=== PATIENT | male | born 1955 | race Caucasian/White ===

== ENCOUNTER → 2023-09-22 13:16 | Outpatient (REF) | payer MEDICARE, OTHER, SELFPAY ==
[2023-09-22 14:14] LABS: % Basophils 0.7 % (0-2); % Immature Granulocytes 0.5 % (0-0.5); % Lymphocytes 20.3 % (20.5-51.1); % Monocytes 11.4 % (1.7-9.3); % Neutrophils 64.1 % (42.2-75.2); Absolute Eosinophils 0.2 10^3/uL (0-0.7); Absolute Lymphocytes 1.2 10^3/uL (1.2-3.4); Absolute Monocytes 0.7 10^3/uL (0.1-0.6); Absolute Neutrophils 3.7 10^3/uL (1.4-6.5); Hematocrit 40.5 % (39.0-52.0); Hemoglobin 14.8 g/dL (13.0-18.0); Mean Corp Hgb Conc. 36.5 g/dL (33.0-37.0); Mean Corpuscular Hgb 33.9 pg (27.0-31.0); Mean Corpuscular Volume 92.9 fL (80.0-94.0); Mean Platelet Volume 8.7 fL (7.4-10.4); Nucleated Red Blood Cells % 0 % (-); Platelet Count 194 10^3/uL (130-400); Red Blood Cell Count 4.36 10^6/uL (4.70-6.10); White Blood Cell Count 5.7 10^3/uL (4.8-10.8)
[2023-09-22 14:40] LABS: Iron 187 ug/dl (49-181)
[2023-09-22 14:50] LABS: Percent Saturation 64 % (20-50); Total Iron Binding Capacity 288 ug/dl (261-462)
[2023-09-22 15:22] LABS: Ferritin 60.4 ng/ml (17.9-464.0)
== END ==
LOC: REG 13:16
PROVIDERS: ATTENDING PHYSICIAN Internal Medicine Hematology & Oncology; FAMILY PHYSICIAN Family Medicine
DX: C24.9 Malignant neoplasm of biliary tract, unspecified (principal); E83.119 Hemochromatosis, unspecified
CPT/HCPCS: 36415; 82728; 83540; 83550; 85025

== ENCOUNTER 2023-09-28 13:33 | Outpatient (RCR) | payer MEDICARE, OTHER, SELFPAY ==
[2023-09-28 13:54] VITALS: BP 131/72
[2023-09-28 14:15] VITALS: BP 127/83
== END 2023-09-29 08:06 | disposition home or self-care (01) ==
LOC: OID 13:33
PROVIDERS: ATTENDING PHYSICIAN Internal Medicine Hematology & Oncology; FAMILY PHYSICIAN Family Medicine
DX: E83.110 Hereditary hemochromatosis (principal); C24.9 Malignant neoplasm of biliary tract, unspecified
CPT/HCPCS: 99195

== ENCOUNTER → 2023-12-18 11:02 | Outpatient (REF) | payer MEDICARE, OTHER, SELFPAY ==
[2023-12-18 12:09] LABS: % Basophils 0.3 % (0-2); % Eosinophils 1.3 % (0-6); % Immature Granulocytes 0.4 % (0-0.5); % Lymphocytes 7.5 % (20.5-51.1); % Monocytes 8.6 % (1.7-9.3); % Neutrophils 81.9 % (42.2-75.2); Absolute Eosinophils 0.1 10^3/uL (0-0.7); Absolute Lymphocytes 0.8 10^3/uL (1.2-3.4); Absolute Monocytes 0.9 10^3/uL (0.1-0.6); Absolute Neutrophils 8.7 10^3/uL (1.4-6.5); Hematocrit 41.9 % (39.0-52.0); Hemoglobin 15.4 g/dL (13.0-18.0); Mean Corp Hgb Conc. 36.8 g/dL (33.0-37.0); Mean Corpuscular Hgb 34.1 pg (27.0-31.0); Mean Corpuscular Volume 92.9 fL (80.0-94.0); Mean Platelet Volume 8.7 fL (7.4-10.4); Nucleated Red Blood Cells % 0 % (-); Platelet Count 186 10^3/uL (130-400); Red Blood Cell Count 4.51 10^6/uL (4.70-6.10); Red Cell Dist. Width 11.3 % (11.5-14.5); White Blood Cell Count 10.6 10^3/uL (4.8-10.8)
[2023-12-18 12:40] LABS: Iron 94 ug/dl (49-181)
[2023-12-18 12:49] LABS: Percent Saturation 31 % (20-50); Total Iron Binding Capacity 297 ug/dl (261-462)
== END ==
LOC: REG 11:02
PROVIDERS: ATTENDING PHYSICIAN Internal Medicine Hematology & Oncology; FAMILY PHYSICIAN Family Medicine
DX: C24.9 Malignant neoplasm of biliary tract, unspecified (principal); E83.119 Hemochromatosis, unspecified
CPT/HCPCS: 36415; 82728; 83540; 83550; 85025

== ENCOUNTER 2024-01-04 13:31 | Outpatient (RCR) | payer MEDICARE, OTHER, SELFPAY ==
[2024-01-04 14:15] VITALS: BP 146/69
[2024-01-04 14:35] VITALS: BP 141/77
[2024-01-04 14:37] VITALS: BP 142/83
== END 2024-01-05 09:16 | disposition home or self-care (01) ==
LOC: OID 13:31
PROVIDERS: ATTENDING PHYSICIAN Internal Medicine Hematology & Oncology; FAMILY PHYSICIAN Family Medicine
DX: E83.119 Hemochromatosis, unspecified (principal); C24.9 Malignant neoplasm of biliary tract, unspecified; K74.60 Unspecified cirrhosis of liver
CPT/HCPCS: 99195

== ENCOUNTER → 2024-03-15 06:56 | Outpatient (REF) | payer MEDICARE, OTHER, SELFPAY ==
[2024-03-15 08:13] LABS: % Basophils 0.9 % (0-2); % Immature Granulocytes 0.6 % (0-0.5); % Lymphocytes 25.1 % (20.5-51.1); % Monocytes 10.2 % (1.7-9.3); % Neutrophils 60.2 % (42.2-75.2); Absolute Eosinophils 0.1 10^3/uL (0-0.7); Absolute Lymphocytes 1.2 10^3/uL (1.2-3.4); Absolute Monocytes 0.5 10^3/uL (0.1-0.6); Absolute Neutrophils 2.8 10^3/uL (1.4-6.5); Hematocrit 39.1 % (39.0-52.0); Hemoglobin 14.3 g/dL (13.0-18.0); Mean Corp Hgb Conc. 36.6 g/dL (33.0-37.0); Mean Corpuscular Hgb 33.6 pg (27.0-31.0); Mean Platelet Volume 8.9 fL (7.4-10.4); Nucleated Red Blood Cells % 0 % (-); Platelet Count 189 10^3/uL (130-400); Red Blood Cell Count 4.25 10^6/uL (4.70-6.10); Red Cell Dist. Width 12.8 % (11.5-14.5); White Blood Cell Count 4.6 10^3/uL (4.8-10.8)
[2024-03-15 08:58] LABS: ALT (SGPT) 34 U/L (0-50); AST (SGOT) 49 U/L (17-59); Albumin 4.6 g/dl (3.5-5.0); Alkaline Phosphatase 62 U/L (38-126); Blood Urea Nitrogen 11 mg/dl (9-20); Calcium 9.4 mg/dl (8.4-10.2); Carbon Dioxide 30 mmol/L (22-30); Chloride 96 mmol/L (98-107); Glucose 102 mg/dl (70-99); HDL Cholesterol 76 mg/dl; Iron 123 ug/dl (49-181); LDL Cholesterol, Calculated 58 mg/dl; Potassium 4.5 mmol/L (3.5-5.1); Sodium 134 mmol/L (135-145); Total Bilirubin 0.9 mg/dl (0.2-1.3); Total Cholesterol 157 mg/dl (50-199); Total Protein 7.1 g/dl (6.3-8.2); Triglyceride 115 mg/dl (10-149); Very Low Density Lipoprotein 23 mg/dl (0-30); eGFR > 60.00
[2024-03-15 09:08] LABS: Percent Saturation 42 % (20-50); Total Iron Binding Capacity 289 ug/dl (261-462)
[2024-03-15 09:09] LABS: Free T4 0.72 ng/dl (0.78-2.19)
[2024-03-15 09:23] LABS: PSA, Total - Screen 0.83 ng/ml (0.0-4.0); TSH 3.31 uIU/ml (0.47-4.68)
[2024-03-15 09:27] LABS: Ferritin 35.7 ng/ml (17.9-464.0)
== END ==
LOC: REG 06:56
PROVIDERS: ATTENDING PHYSICIAN Internal Medicine Hematology & Oncology; FAMILY PHYSICIAN Family Medicine
DX: C24.9 Malignant neoplasm of biliary tract, unspecified (principal); E83.119 Hemochromatosis, unspecified; E78.2 Mixed hyperlipidemia; R53.83 Other fatigue; Z12.5 Encounter for screening for malignant neoplasm of prostate; Z00.01 Encounter for general adult medical examination with abnormal findings; R25.2 Cramp and spasm
CPT/HCPCS: 36415; 80053; 80061; 82728; 83540; 83550; 83735; 84439; 84443; 85025; G0103

== ENCOUNTER 2024-04-07 10:40 | Outpatient (RCR) | payer MEDICARE, OTHER, SELFPAY ==
[2024-04-07 10:57] VITALS: BP 145/83
[2024-04-07 11:25] VITALS: BP 134/89
[2024-04-07 11:26] VITALS: BP 137/89
== END 2024-04-18 23:59 | disposition home or self-care (01) ==
LOC: OID 10:40
PROVIDERS: ATTENDING PHYSICIAN Internal Medicine Hematology & Oncology; FAMILY PHYSICIAN Family Medicine
DX: E83.119 Hemochromatosis, unspecified (principal); C24.9 Malignant neoplasm of biliary tract, unspecified
CPT/HCPCS: 99195

== ENCOUNTER → 2024-04-21 07:17 | Outpatient (REF) | payer MEDICARE, OTHER, SELFPAY | LOC: MRI 3T 07:17 | PROVIDERS: ATTENDING PHYSICIAN Physician Assistant; FAMILY PHYSICIAN Family Medicine | DX: M54.16 Radiculopathy, lumbar region (principal) | CPT/HCPCS: 72148 ==

== ENCOUNTER → 2024-06-09 10:03 | Outpatient (REF) | payer MEDICARE, OTHER, SELFPAY | LOC: RCS 10:03 | PROVIDERS: ATTENDING PHYSICIAN Physical Medicine & Rehabilitation; FAMILY PHYSICIAN Family Medicine | DX: Z01.818 Encounter for other preprocedural examination (principal) | CPT/HCPCS: 93005 ==

== ENCOUNTER → 2024-06-21 14:33 | Outpatient (REF) | payer MEDICARE, OTHER, SELFPAY ==
[2024-06-21 15:04] LABS: % Basophils 0.7 % (0-2); % Immature Granulocytes 0.9 % (0-0.5); % Lymphocytes 21.7 % (20.5-51.1); % Monocytes 14.3 % (1.7-9.3); % Neutrophils 60.4 % (42.2-75.2); Absolute Eosinophils 0.1 10^3/uL (0-0.7); Absolute Immature Granulocytes 0.1 10^3/uL (0-0.05); Absolute Lymphocytes 1.2 10^3/uL (1.2-3.4); Absolute Monocytes 0.8 10^3/uL (0.1-0.6); Absolute Neutrophils 3.4 10^3/uL (1.4-6.5); Hematocrit 42.1 % (39.0-52.0); Mean Corp Hgb Conc. 35.6 g/dL (33.0-37.0); Mean Corpuscular Hgb 34.1 pg (27.0-31.0); Mean Corpuscular Volume 95.7 fL (80.0-94.0); Mean Platelet Volume 8.6 fL (7.4-10.4); Nucleated Red Blood Cells % 0 % (-); Platelet Count 233 10^3/uL (130-400); Red Cell Dist. Width 12.1 % (11.5-14.5); White Blood Cell Count 5.6 10^3/uL (4.8-10.8)
[2024-06-21 15:20] LABS: Iron 165 ug/dl (49-181)
[2024-06-21 15:30] LABS: Percent Saturation 51 % (20-50); Total Iron Binding Capacity 322 ug/dl (261-462)
[2024-06-21 15:56] LABS: Ferritin 34.9 ng/ml (17.9-464.0)
== END ==
LOC: REG 14:33
PROVIDERS: ATTENDING PHYSICIAN Internal Medicine Hematology & Oncology; FAMILY PHYSICIAN Family Medicine
DX: C24.9 Malignant neoplasm of biliary tract, unspecified (principal); E83.119 Hemochromatosis, unspecified
CPT/HCPCS: 36415; 82728; 83540; 83550; 85025

== ENCOUNTER 2024-06-28 14:31 | Outpatient (RCR) | payer MEDICARE, OTHER, SELFPAY ==
[2024-06-28 14:50] VITALS: BP 133/73
[2024-06-28 15:20] VITALS: BP 138/83
[2024-06-28 15:25] VITALS: BP 132/73
== END 2024-06-29 09:00 | disposition home or self-care (01) ==
LOC: OID 14:31
PROVIDERS: ATTENDING PHYSICIAN Internal Medicine Hematology & Oncology; FAMILY PHYSICIAN Family Medicine
DX: E83.119 Hemochromatosis, unspecified (principal); C24.9 Malignant neoplasm of biliary tract, unspecified
CPT/HCPCS: 99195

== ENCOUNTER → 2024-09-21 13:34 | Outpatient (REF) | payer MEDICARE, OTHER, SELFPAY ==
[2024-09-21 14:13] LABS: % Basophils 0.9 % (0-2); % Eosinophils 2.7 % (0-6); % Immature Granulocytes 0.4 % (0-0.5); % Lymphocytes 24.6 % (20.5-51.1); % Monocytes 11.2 % (1.7-9.3); % Neutrophils 60.2 % (42.2-75.2); Absolute Basophils 0.1 10^3/uL (0-0.2); Absolute Eosinophils 0.1 10^3/uL (0-0.7); Absolute Lymphocytes 1.3 10^3/uL (1.2-3.4); Absolute Monocytes 0.6 10^3/uL (0.1-0.6); Absolute Neutrophils 3.2 10^3/uL (1.4-6.5); Hemoglobin 15.1 g/dL (13.0-18.0); Mean Corp Hgb Conc. 35.1 g/dL (33.0-37.0); Mean Corpuscular Hgb 32.6 pg (27.0-31.0); Mean Corpuscular Volume 92.9 fL (80.0-94.0); Mean Platelet Volume 8.5 fL (7.4-10.4); Nucleated Red Blood Cells % 0 % (-); Platelet Count 186 10^3/uL (130-400); Red Blood Cell Count 4.63 10^6/uL (4.70-6.10); Red Cell Dist. Width 12.4 % (11.5-14.5); White Blood Cell Count 5.3 10^3/uL (4.8-10.8)
[2024-09-21 15:32] LABS: Iron 280 ug/dl (49-181)
[2024-09-21 15:44] LABS: Percent Saturation 95 % (20-50); Total Iron Binding Capacity 293 ug/dl (261-462)
[2024-09-21 16:07] LABS: Ferritin 31.8 ng/ml (17.9-464.0)
== END ==
LOC: REG 13:34
PROVIDERS: ATTENDING PHYSICIAN Internal Medicine Hematology & Oncology; FAMILY PHYSICIAN Family Medicine
DX: E83.119 Hemochromatosis, unspecified (principal)
CPT/HCPCS: 36415; 82728; 83540; 83550; 85025

== ENCOUNTER 2024-10-14 10:41 | Outpatient (RCR) | payer MEDICARE, OTHER, SELFPAY ==
[2024-10-14 11:09] VITALS: BP 131/75
[2024-10-14 11:50] VITALS: BP 112/79
[2024-10-14 13:30] VITALS: BP 127/82
== END 2024-10-17 23:59 | disposition home or self-care (01) ==
LOC: OID 10:41
PROVIDERS: ATTENDING PHYSICIAN Internal Medicine Hematology & Oncology; FAMILY PHYSICIAN Family Medicine
DX: E83.111 Hemochromatosis due to repeated red blood cell transfusions (principal); C24.9 Malignant neoplasm of biliary tract, unspecified
CPT/HCPCS: 99195

== ENCOUNTER → 2024-12-19 13:48 | Outpatient (REF) | payer MEDICARE, OTHER, SELFPAY ==
[2024-12-19 14:21] LABS: % Basophils 0.7 % (0-2); % Eosinophils 2.8 % (0-6); % Immature Granulocytes 0.5 % (0-0.5); % Lymphocytes 18.8 % (20.5-51.1); % Monocytes 9.5 % (1.7-9.3); % Neutrophils 67.7 % (42.2-75.2); Absolute Eosinophils 0.2 10^3/uL (0-0.7); Absolute Lymphocytes 1.1 10^3/uL (1.2-3.4); Absolute Monocytes 0.5 10^3/uL (0.1-0.6); Absolute Neutrophils 3.8 10^3/uL (1.4-6.5); Hematocrit 40.8 % (39.0-52.0); Hemoglobin 14.7 g/dL (13.0-18.0); Mean Corpuscular Volume 94.4 fL (80.0-94.0); Mean Platelet Volume 8.8 fL (7.4-10.4); Nucleated Red Blood Cells % 0 % (-); Platelet Count 191 10^3/uL (130-400); Red Blood Cell Count 4.32 10^6/uL (4.70-6.10); Red Cell Dist. Width 11.5 % (11.5-14.5); White Blood Cell Count 5.7 10^3/uL (4.8-10.8)
[2024-12-19 14:55] LABS: Iron 126 ug/dl (49-181)
[2024-12-19 15:05] LABS: Percent Saturation 41 % (20-50); Total Iron Binding Capacity 303 ug/dl (261-462)
[2024-12-19 15:28] LABS: Ferritin 49.5 ng/ml (17.9-464.0)
== END ==
LOC: REG 13:48
PROVIDERS: ATTENDING PHYSICIAN Internal Medicine Hematology & Oncology; FAMILY PHYSICIAN Family Medicine
DX: E83.119 Hemochromatosis, unspecified (principal)
CPT/HCPCS: 36415; 82728; 83540; 83550; 85025

== ENCOUNTER 2024-12-26 10:35 | Outpatient (RCR) | payer MEDICARE, OTHER, SELFPAY ==
[2024-12-26 11:03] VITALS: BP 141/83
[2024-12-26 11:33] VITALS: BP 135/85
[2024-12-26 11:35] VITALS: BP 121/77
== END 2025-01-16 23:59 | disposition home or self-care (01) ==
LOC: OID 10:35
PROVIDERS: ATTENDING PHYSICIAN Internal Medicine Hematology & Oncology; FAMILY PHYSICIAN Family Medicine
DX: E83.111 Hemochromatosis due to repeated red blood cell transfusions (principal); C24.9 Malignant neoplasm of biliary tract, unspecified
CPT/HCPCS: 99195

== ENCOUNTER → 2025-02-02 13:36 | Outpatient (REF) | payer MEDICARE, OTHER, SELFPAY | LOC: RAD 13:36 | PROVIDERS: ATTENDING PHYSICIAN Family Medicine; FAMILY PHYSICIAN Family Medicine | DX: M25.539 Pain in unspecified wrist (principal); M79.603 Pain in arm, unspecified; M25.511 Pain in right shoulder | CPT/HCPCS: 73030; 73090; 73110 ==

== ENCOUNTER → 2025-03-09 09:32 | Outpatient (REF) | payer MEDICARE, OTHER, SELFPAY | LOC: RAD 09:32 | PROVIDERS: ATTENDING PHYSICIAN Orthopaedic Surgery; FAMILY PHYSICIAN Family Medicine | DX: M25.552 Pain in left hip (principal) | CPT/HCPCS: 73502 ==

== ENCOUNTER → 2025-03-24 13:40 | Outpatient (REF) | payer MEDICARE, OTHER, SELFPAY ==
[2025-03-24 14:18] LABS: Hematocrit 41.5 % (39.0-52.0); Hemoglobin 14.3 g/dL (13.0-18.0); Mean Corp Hgb Conc. 34.5 g/dL (33.0-37.0); Mean Corpuscular Volume 92.0 fL (80.0-94.0); Nucleated Red Blood Cells % 0 % (-); Platelet Count 211 10^3/uL (130-400); Red Cell Dist. Width 13.2 % (11.5-14.5)
[2025-03-24 14:59] LABS: Iron 65 ug/dl (49-181)
[2025-03-24 15:29] LABS: Ferritin 19.2 ng/ml (17.9-464.0)
== END ==
LOC: REG 13:40
PROVIDERS: ATTENDING PHYSICIAN Internal Medicine Hematology & Oncology; FAMILY PHYSICIAN Family Medicine
DX: E83.119 Hemochromatosis, unspecified (principal)
CPT/HCPCS: 36415; 82728; 83540; 85025

== ENCOUNTER 2025-03-29 06:28 | Day surgery (SDC) | payer MEDICARE, OTHER, SELFPAY | END 2025-03-29 15:15 | disposition home or self-care (01) | LOC: GI 06:28 | PROVIDERS: ATTENDING PHYSICIAN Internal Medicine; FAMILY PHYSICIAN Family Medicine | DX: Z12.11 Encounter for screening for malignant neoplasm of colon (principal); K57.30 Diverticulosis of large intestine without perforation or abscess without bleeding; K64.8 Other hemorrhoids; Z86.0100 Personal history of colon polyps, unspecified | CPT/HCPCS: G0105 ==

== ENCOUNTER → 2025-04-14 13:08 | Outpatient (REF) | payer MEDICARE, OTHER, SELFPAY ==
[2025-04-14 13:47] LABS: Hematocrit 40.8 % (39.0-52.0); Hemoglobin 14.6 g/dL (13.0-18.0); Mean Corp Hgb Conc. 35.8 g/dL (33.0-37.0); Mean Corpuscular Volume 88.7 fL (80.0-94.0); Nucleated Red Blood Cells % 0 % (-); Platelet Count 209 10^3/uL (130-400); Red Cell Dist. Width 13.0 % (11.5-14.5)
[2025-04-14 13:57] LABS: Blood Urea Nitrogen 12 mg/dl (9-20); Calcium 9.4 mg/dl (8.4-10.2); Carbon Dioxide 31 mmol/L (22-30); Chloride 93 mmol/L (98-107); Glucose 93 mg/dl (70-99); Potassium 3.7 mmol/L (3.5-5.1); Sodium 130 mmol/L (135-145); eGFR > 60.00
== END ==
LOC: REG 13:08
PROVIDERS: ATTENDING PHYSICIAN Orthopaedic Surgery; FAMILY PHYSICIAN Family Medicine
DX: Z01.818 Encounter for other preprocedural examination (principal)
CPT/HCPCS: 36415; 80048; 85025; 93005

== ENCOUNTER 2025-04-25 05:46 | Day surgery (SDC) | payer MEDICARE, OTHER, SELFPAY ==
[2025-04-25 06:18] VITALS: BMI 24.0
[2025-04-25] MEDS: TYLENOL 1000 MG PO (06:19)
[2025-04-25 06:31] VITALS: BP 173/89
[2025-04-25] MEDS: NORMOSOL-R/PLASMALYTE-A 1000 IV (06:41)
--- NOTE | 2025-04-25 07:02 | W.SUR.PREOP ---
Pre-Operative Surgical Note
-
I have examined this patient prior to the performance of the scheduled procedure.
The patient's condition is unchanged from the time of the current History and
Physical and the patient is able to undergo the scheduled procedure.
--- NOTE | 2025-04-25 07:02 | HP.FOC2 ---
Focused History & Physical
Chief Complaint
HPI:
Chief Complaint: Left upper chest wall subcutaneous mass, left upper extremity subcutaneous mass
HPI / Indication for Planned Procedure: This is a 70-year-old male who presents with a left upper chest wall and as well as a left upper extremity subcutaneous masses. Here for open excision of both.
Relevant Past Medical History: Negative
Relevant Social History: Negative
Relevant Family History: Negative
Relevant Past Surgical History: Negative
Review of Systems
Review of Pertinent Systems: All Systems Negative
Medication
See Medication form for detailed medications: Yes
Medication List (including Herbals & OTC):
cholecalciferol (vitamin D3) 25 mcg (1,000 unit) capsule (Vitamin D3) 1 cap PO DAILY 09/02/16
diphenhydramine HCl 25 mg capsule (Banophen) 25 mg PO Q4HPRN PRN rash, itching #10 caps 01/29/19
hydrochlorothiazide 50 mg tablet 50 mg PO DAILY 10/17/20
valsartan 160 mg tablet 160 mg PO DAILY 06/06/21
Fiber Choice (inulin) 1 tab PO DAILY 04/20/25
atorvastatin 20 mg tablet (Lipitor) 20 mg PO DAILY 04/20/25
multivitamin 1 tab PO DAILY 04/20/25
omega 6-[id number]-dcg-fish oil 1,000 mg (120 mg-180 mg) capsule (Fish Oil) 1 cap PO DAILY 04/20/25
vitamin I02-pwzyd acid 1 tab PO DAILY 04/20/25
valsartan 80 mg tablet 80 mg PO HS 04/25/25
Medications Reviewed: Yes
Allergies and Reactions
Patient has Allergies: No
Noted Allergies and Reactions:
Allergy/AdvReac Type Severity Reaction Status Date / Time
bee venom protein (honey bee) Allergy Anaphylaxis Verified 04/25/25 06:11
Pertinent Physical Exam
All Other Systems: Negative
Head/Neck: Normal
Diagnosis / Assessment
This is a 70-year-old male who presents with a left upper chest wall and as well as a left upper extremity subcutaneous masses. Here for open excision of both.
Plan / Procedure
This is a 70-year-old male who presents with a left upper chest wall and as well as a left upper extremity subcutaneous masses. Here for open excision of both.
Anesthesia/Sedation to be done by Anesthesia Provider: Yes
[2025-04-25 08:24] VITALS: BP 130/71
[2025-04-25 08:30] VITALS: BP 133/78
--- NOTE | 2025-04-25 08:38 | W.IMMPOSTOP ---
Surgical Immed Post Op Note
-
Primary Surgeon: Jairo Walker MD
Assisting Surgeon: None
Pre-op Diagnosis: Left upper chest wall lipoma, left upper extremity lipoma
Post-op Diagnosis: Same
Procedure Performed:
1. Excision of a left upper chest wall lipoma
2. Excision of a left upper extremity intramuscular lipoma
Anesthesia Type: General
Specimen / Cultures:
1. Left upper chest wall lipoma
2. Left upper extremity intramuscular lipoma
Estimated Blood Loss: 3 cc
Complications: None
Operative Findings: Unencapsulated chest wall lipoma 7 x 4.5 x 3 cm, unencapsulated, intramuscular left upper extremity lipoma 4 x 3 x 3 cm.
--- NOTE | 2025-04-25 08:40 | OR.RPT ---
Operative Report
Operative Report
Patient Name: Xander Camacho
: 1955
Date of Operation: 04/25/2025
Preoperative Diagnosis: Left upper chest wall lipoma, left upper extremity lipoma
Postoperative Diagnosis: Same
Procedure(s):
1. Excision of a left upper chest wall lipoma
2. Excision of an intramuscular left upper extremity lipoma
Surgeon(s):
Dr. Walker
Credit Interviewer(s):
MARY Hicks
Anesthesia: MAC
Estimated Blood Loss: 3 cc
Urine Output: None
Drains/Lines/Implants: None
Specimens:
1. Left upper chest wall lipoma
2. Left upper extremity intramuscular lipoma
Indication for surgery:
This is a 70-year-old male who presents with a subcutaneous mass in his left upper chest wall as well as a very symptomatic left upper extremity subcutaneous mass. After evaluation in the office they were diagnosed with a lipoma. After discussion
of risk benefits and alternatives they elected and were consented for surgery.
Operative Findings: Unencapsulated chest wall lipoma 7 x 4.5 x 3 cm, unencapsulated, intramuscular left upper extremity lipoma 4 x 3 x 3 cm.
Details of the operation:
The patient was brought to the operating room a placed in the supine position, with the left arm out. After appropriate sedation by anesthesia, the area of the left chest wall and upper extremity were prepped and draped in the usual fashion. We
began with the chest wall mass. A linear incision over natural skin line was made over the mass and carried down through the subcutaneous tissue. The Lipoma was identified and found to be unencapsulated. The lipoma was freed circumferentially.
The specimen which measured roughly 7 x 4.5 x 3 cm was passed off the field. The cavity was irrigated and hemostasis was achieved. Care was taken ensure all lipomatous tissue was removed. The space was closed with interrupted 3-0 Vicryl sutures.
The dermis was then approximated using interrupted 3-0 Vicryl sutures followed by a running 4-0 monocryl. We then turned our attention to the left upper extremity, again an incision was made over the mass using a natural skin line. I dissection
was carried down to over the mass which was deep to the muscle fascia. This was carefully excised and from the surrounding muscle fibers and subcutaneous tissue. The specimen measured roughly 4 x 3 x 3 cm and was also found to be an
unencapsulated lipoma. The cavity was irrigated and hemostasis was achieved. Care was taken ensure all lipomatous tissue was removed. The space was then closed with interrupted 3-0 Vicryl sutures in layers followed by running 4-0 Monocryl as
above. Both skin incisions were then closed with dermabond. All counts were correct at the end of procedure. The patient was then transferred to the PACU for recovery.
I was the attending physician and performed the procedure with assistance from the PA student above. I was present for all portions of the case
Jairo Walker MD
[2025-04-25 08:45] VITALS: BP 140/73
[2025-04-25 09:00] VITALS: BP 124/73
== END 2025-04-25 09:20 | disposition home or self-care (01) ==
LOC: SDS 05:46
PROVIDERS: ATTENDING PHYSICIAN Surgery
DX: D17.1 Benign lipomatous neoplasm of skin and subcutaneous tissue of trunk (principal); D17.9 Benign lipomatous neoplasm, unspecified
CPT/HCPCS: 21931; 88304

== ENCOUNTER → 2025-05-02 13:28 | Outpatient (REF) | payer MEDICARE, OTHER, SELFPAY | LOC: MRI 13:28 | PROVIDERS: ATTENDING PHYSICIAN Internal Medicine; FAMILY PHYSICIAN Family Medicine | DX: E83.110 Hereditary hemochromatosis (principal); K74.00 Hepatic fibrosis, unspecified; R94.5 Abnormal results of liver function studies | CPT/HCPCS: 74183; 76391; A9581 ==

== ENCOUNTER → 2025-05-04 08:29 | Outpatient (REF) | payer MEDICARE, OTHER, SELFPAY ==
[2025-05-04 10:29] LABS: Hematocrit 40.0 % (39.0-52.0); Hemoglobin 14.7 g/dL (13.0-18.0); Mean Corp Hgb Conc. 36.8 g/dL (33.0-37.0); Mean Corpuscular Volume 92.6 fL (80.0-94.0); Nucleated Red Blood Cells % 0 % (-); Platelet Count 240 10^3/uL (130-400); Red Cell Dist. Width 13.2 % (11.5-14.5)
[2025-05-04 11:01] LABS: ALT (SGPT) 22 U/L (0-50); AST (SGOT) 25 U/L (17-59); Albumin 4.6 g/dl (3.5-5.0); Alkaline Phosphatase 64 U/L (38-126); Blood Urea Nitrogen 12 mg/dl (9-20); Calcium 9.6 mg/dl (8.4-10.2); Carbon Dioxide 29 mmol/L (22-30); Chloride 93 mmol/L (98-107); Glucose 106 mg/dl (70-99); HDL Cholesterol 82 mg/dl; LDL Cholesterol, Calculated 68 mg/dl; Potassium 4.2 mmol/L (3.5-5.1); Sodium 129 mmol/L (135-145); Total Protein 7.5 g/dl (6.3-8.2); Very Low Density Lipoprotein 22 mg/dl (0-30); eGFR > 60.00
[2025-05-04 11:11] LABS: Vitamin D, 25-OH*** 66.6 ng/mL (30-80)
[2025-05-04 11:25] LABS: PSA, Total - Screen 1.03 ng/ml (0.0-4.0); TSH 1.82 uIU/ml (0.47-4.68)
== END ==
LOC: REG 08:29
PROVIDERS: ATTENDING PHYSICIAN Family Medicine
DX: N40.0 Benign prostatic hyperplasia without lower urinary tract symptoms (principal); R35.0 Frequency of micturition; I10 Essential (primary) hypertension; R53.83 Other fatigue; E78.2 Mixed hyperlipidemia; D55.9 Anemia due to enzyme disorder, unspecified; E55.9 Vitamin D deficiency, unspecified; Z12.5 Encounter for screening for malignant neoplasm of prostate
CPT/HCPCS: 36415; 80053; 80061; 82306; 84443; 85025; G0103